=== PATIENT | female | born 1960 | race Hispanic/Latino ===

== ENCOUNTER 2022-03-15 03:37 | Emergency (ER) | payer BC, OTHER ==
[~2022-03-15] VITALS: Ht 152.4 cm; Wt 90.7 kg
[2022-03-15] MEDS ORDERED: IPRATROPIUM/ALBUTEROL SULFATE 3 ML SOLUTION IH ONE ×2 (05:00→06:30)
[2022-03-15 06:10] VITALS: BP 157/76
[2022-03-15] MEDS ORDERED: DOXYCYCLINE HYCLATE 100 MG TABLET PO SCH (06:30)
[2022-03-15] MEDS ORDERED: BENZONATATE 100 MG CAPSULE PO ONE (06:30)
[2022-03-15] MEDS ORDERED: SOLU-MEDROL 125MG VIAL IM ONE (06:30)
[2022-03-15] MEDS ORDERED: DOXY-469 PO (06:33)
[2022-03-15] MEDS ORDERED: PRED20TA3 PO (06:33)
[2022-03-15] MEDS ORDERED: BENZ-39 PO (06:33)
[2022-03-15] MEDS ORDERED: ALBU1.252 IH (06:33)
== END 2022-03-15 07:34 | disposition home or self-care (01) ==
LOC: EDH 03:37
DX: J18.9 Pneumonia, unspecified organism (principal); J98.01 Acute bronchospasm; R06.2 Wheezing; I10 Essential (primary) hypertension; Z20.822 Contact with and (suspected) exposure to COVID-19
CPT/HCPCS: 99285; 71045; 87635; 87804 ×2; 96372; 94640 ×3; C9803; J2930

== ENCOUNTER 2022-04-02 01:14 | Emergency (ER) | payer OTHER ==
[~2022-04-02] VITALS: Ht 149.9 cm; Wt 93.0 kg
[~2022-04-02 01:14] MED LIST: ALBU1.252 IH; BENZ-39 PO; DOXY-469 PO; PRED20TA3 PO
[2022-04-02] MEDS ORDERED: ACETAMINOPHEN 325 MG TAB ONE (01:49)
[2022-04-02] MEDS ORDERED: ACETAMINOPHEN 500 MG TABLET PO ONE (02:00)
[2022-04-02] MEDS ORDERED: ACETAMINOPHEN 325 MG TAB PO ONE (02:00)
[2022-04-02 05:11] VITALS: BP 152/87
== END 2022-04-02 05:13 | disposition home or self-care (01) ==
LOC: EDH 01:14
DX: S16.1XXA Strain of muscle, fascia and tendon at neck level, initial encounter (principal); S00.83XA Contusion of other part of head, initial encounter; I10 Essential (primary) hypertension; W22.8XXA Striking against or struck by other objects, initial encounter; Y93.89 Activity, other specified; Y92.89 Other specified places as the place of occurrence of the external cause; Y99.8 Other external cause status
CPT/HCPCS: 70450; 72125